=== PATIENT | female | born 1980 ===

== ENCOUNTER → 2017-09-13 | Outpatient (CLI) | payer SELFPAY ==
--- NOTE | 2017-09-13 15:04 | Diagnostic Imaging Report ---
INDICATION: Right lower quadrant pain and irregular menses. PROCEDURE: US Non-ob pelvis comp/trans. TECHNIQUE: Multiple Real-time grayscale images were obtained of the pelvis in various projections endovaginally. Transabdominal imaging was also performed. FINDINGS: The uterus measures 11.1 x 7.0 x 5.8 cm. No myometrial mass is identified. The left ovary was not visualized due to overlying bowel gas and body habitus. The right ovary measures 3.9 x 4.5 x 4.1 cm. The right ovary does contain a 3.3 cm cyst. No other adnexal mass is identified. No free fluid is seen. IMPRESSION: 3.3 cm right ovarian cyst. No other significant abnormality is seen. A followup ultrasound could be performed to confirm resolution. Dictated by: Dictated on workstation # [id number]
== END ==
LOC: RAD 12:15
PROVIDERS: ATTEND Physician Assistant
DX: N83.201 Unspecified ovarian cyst, right side (principal); N92.0 Excessive and frequent menstruation with regular cycle
CPT/HCPCS: 76830; 76856

== ENCOUNTER 2022-01-15 16:49 | Emergency (ER) | payer SELFPAY ==
[~2022-01-15] VITALS: Ht 149.8 cm; Wt 113.3 kg
--- NOTE | 2022-01-15 17:26 | ED Abdominal Pain ---
General Chief Complaint: Abdominal/GI Problems Stated Complaint: ABD PAIN Nursing Triage Note: PT AMB TO [facility] 3 WITH FRIEND. PT STATED THAT SHE HAS HAD UPPER LEFT ABD PAIN FOR 2 WEEKS. PT WAS SEEN LAST SATURDAY AT [facility] IN [place] AND WAS TOLD THAT SHE SHOULD SEE HER PRIMARY CARE PROVIDER FOR POSSIBLE H PYLORI. PT SAW HER PRIMARY CARE PROVIDER TODAY AND WAS REFERED TO ER. Source of Information: Patient Exam Limitations: No Limitations History of Present Illness Date Seen by Provider: Jan 15, 2022 Time Seen by Provider: 17:25 Initial Comments to ER with left upper abdominal pain for 2 weeks pain is constant and slightly improved with eating. It is worse when she does not eat. She has had nausea once. Couple of days ago she had diarrhea. Timing/Duration: Other (2 weeks) Severity/Quality: Moderate Location: Epigastric Radiation: No Radiation Activities at Onset: None Associated Symptoms: Denies Symptoms Allergies and Home Medications Allergies Coded Allergies: No Known Drug Allergies (Unverified , 01/15/22) Patient Home Medication List Home Medication List Reviewed: Yes Pantoprazole Sodium (Protonix) 40 Mg Tablet.dr, 40 MG PO DAILY Prescribed by: MORELIA QUEEN on 01/15/221901 Sucralfate (Carafate) 1 Gram Tablet, 1 GM PO ACHS Prescribed by: MORELIA QUEEN on 01/15/221901 Review of Systems Review of Systems Constitutional: see HPI EENTM: No Symptoms Reported Respiratory: No Symptoms Reported Cardiovascular: No Symptoms Reported Gastrointestinal: See HPI, Abdominal Pain Genitourinary: No Symptoms Reported Musculoskeletal: no symptoms reported Skin: no symptoms reported Psychiatric/Neurological: No Symptoms Reported Endocrine: No Symptoms Reported Hematologic/Lymphatic: No Symptoms Reported Past Alzicdm-Antcev-Hhludf Hx Patient Social History Tobacco Use?: No Substance use?: No Alcohol Use?: No Pt feels they are or have been: Unable to obtain Immunizations Up To Date Influenza Vaccine Up-to-Date: No; Not Current Physical Exam Vital Signs Vital Signs - First Documented 01/15/22 16:55 Pulse 102 Resp 16 B/P (MAP) 134/79 (97) Pulse Ox 97 O2 Delivery Room Air Capillary Refill : Less Than 3 Seconds Height/Weight/BMI Height: '" Weight: lbs. oz. kg; 50.00 BMI Method: General Appearance: WD/WN, no apparent distress, obese, other (Tearful) Neck: non-tender, full range of motion Respiratory: no respiratory distress, no accessory muscle use Cardiovascular: regular rate, rhythm, no murmur Gastrointestinal: normal bowel sounds, soft, tenderness (Epigastric and left upper) Extremities: normal range of motion, non-tender Neurologic/Psychiatric: alert, normal mood/affect, oriented x 3 Skin: normal color, warm/dry Progress/Results/Core Measures Results/Orders Lab Results Laboratory Tests Test 01/15/22 17:40 Range/Units White Blood Count 6.6 4.3-11.0 10^3/uL Red Blood Count 4.84 3.80-5.11 10^6/uL Hemoglobin 13.9 11.5-16.0 g/dL Hematocrit 41 35-52 % Mean Corpuscular Volume 86 80-99 fL Mean Corpuscular Hemoglobin 29 25-34 pg Mean Corpuscular Hemoglobin Concent 34 32-36 g/dL Red Cell Distribution Width 14.0 10.0-14.5 % Platelet Count 309 130-400 10^3/uL Mean Platelet Volume 8.4 L 9.0-12.2 fL Immature Granulocyte % (Auto) 0 % Neutrophils (%) (Auto) 56 42-75 % Lymphocytes (%) (Auto) 36 12-44 % Monocytes (%) (Auto) 7 0-12 % Eosinophils (%) (Auto) 1 0-10 % Basophils (%) (Auto) 0 0-10 % Neutrophils # (Auto) 3.7 1.8-7.8 10^3/uL Lymphocytes # (Auto) 2.4 1.0-4.0 10^3/uL Monocytes # (Auto) 0.5 0.0-1.0 10^3/uL Eosinophils # (Auto) 0.0 0.0-0.3 10^3/uL Basophils # (Auto) 0.0 0.0-0.1 10^3/uL Immature Granulocyte # (Auto) 0.0 0.0-0.1 10^3/uL Sodium Level 137 135-145 MMOL/L Potassium Level 3.8 3.6-5.0 MMOL/L Chloride Level 101 98-107 MMOL/L Carbon Dioxide Level 25 21-32 MMOL/L Anion Gap 11 5-14 MMOL/L Blood Urea Nitrogen 6 L 7-18 MG/DL Creatinine 0.69 0.60-1.30 MG/DL Estimat Glomerular Filtration Rate 111 BUN/Creatinine Ratio 9 Glucose Level 99 70-105 MG/DL Calcium Level 9.8 8.5-10.1 MG/DL Corrected Calcium 9.6 8.5-10.1 MG/DL Total Bilirubin 0.5 0.1-1.0 MG/DL Aspartate Amino Transf (AST/SGOT) 36 H 5-34 U/L Alanine Aminotransferase (ALT/SGPT) 42 0-55 U/L Alkaline Phosphatase 86 40-136 U/L Total Protein 7.9 6.4-8.2 GM/DL Albumin 4.3 3.2-4.5 GM/DL Lipase 29 8-78 U/L Serum Test, Qualitative NEGATIVE NEGATIVE My Orders Orders - MORELIA QUEEN APRN Hcg,Qualitative Serum (01/15/22 17:22) Cbc With Automated Diff (01/15/22 17:22) Comprehensive Metabolic Panel (01/15/22 17:22) Lipase (01/15/22 17:22) Ed Iv/Invasive Line Start (01/15/22 17:22) Ct Abdomen/Pelvis W (01/15/22 17:22) Fentanyl Inj (Sublimaze Injection) (01/15/22 17:30) Antacid Suspension (Mylanta Suspension (01/15/22 17:30) Lidocaine 2% Viscous 15 Ml (Xylocaine Vi (01/15/22 17:30) Ondansetron Injection (Zofran Injectio (01/15/22 17:30) Iohexol Injection (Omnipaque 350 Mg/Ml 1 (01/15/22 18:30) Ns (Ivpb) (Sodium Chloride 0.9% Ivpb Bag (01/15/22 18:30) Medications Given in ED Current Medications Medications Dose Ordered Sig/Jalil Route Start Time Stop Time Status Last Admin Dose Admin Al Hydrox/Mg Hydrox/Simethicone 30 ml ONCE ONCE PO 01/15/22 17:30 01/15/22 17:31 DC 01/15/22 17:56 30 ML Fentanyl Citrate 50 mcg ONCE ONCE IVP 01/15/22 17:30 01/15/22 17:31 DC 01/15/22 17:50 50 MCG Iohexol 100 ml ONCE ONCE IV 01/15/22 18:30 01/15/22 18:31 DC 01/15/22 18:36 100 ML Lidocaine HCl 10 ml ONCE ONCE PO 01/15/22 17:30 01/15/22 17:31 DC 01/15/22 17:56 10 ML Ondansetron HCl 8 mg ONCE ONCE IVP 01/15/22 17:30 01/15/22 17:31 DC 01/15/22 17:51 8 MG Sodium Chloride 100 ml ONCE ONCE IV 01/15/22 18:30 01/15/22 18:31 DC 01/15/22 18:36 80 ML Vital Signs/I&O 01/15/22 16:55 Pulse 102 Resp 16 B/P (MAP) 134/79 (97) Pulse Ox 97 O2 Delivery Room Air Blood Pressure Mean: 97 Departure Communication (Admissions) 1906-pain is almost completely gone, much better she is very appreciative. I will put her on Protonix and Carafate and have her follow-up with surgery for EGD if this fails to improve her symptoms. NAME: QAMAR ,COSME Raymundo [facility] REC#: [id number] PT STATUS: REG ER : 1980 PHYSICIAN: MORELIA QUEEN [employer] PROCESSOR ADMIT DATE: 01/15/22/ER Draft Date of Exam:01/15/22 CT ABDOMEN/PELVIS W PROCEDURE: CT abdomen and pelvis with contrast. TECHNIQUE: Multiple contiguous axial images were obtained through the abdomen and pelvis after administration of intravenous contrast. Auto Exposure Controls were utilized during the CT exam to meet ALARA standards for radiation dose reduction. All CT scans use one or more of the following dose optimizing techniques: automated exposure control, MA and/or KvP adjustment based on patient size and exam type or iterative reconstruction. INDICATION: Left abdominal pain for 2 weeks No focal hepatic, gallbladder, pancreatic, adrenal gland or splenic abnormality is identified. Kidneys are unremarkable without hydronephrosis or mass. There is no free fluid within the abdomen or pelvis. The appendix has a normal appearance. Unopacified bladder is distended but otherwise unremarkable. Uterine body is deviated toward the right with prominence of cyst in the right ovary. Otherwise, there is no evidence of organized fluid collection or focal inflammation. IMPRESSION: No acute abnormality is identified within the abdomen or pelvis. Incidental note is made of partially visualized mild atelectasis or scarring in the lingula. Dictated on workstation # [id number] Dict: 01/15/22 1843 Trans: 01/15/22 1852 AVA [id number] Interpreted by: KEON ROSE MD Electronically signed by: Impression Primary Impression: Gastritis Disposition: 01 HOME, SELF-CARE Condition: Stable Departure-Patient Inst. Decision time for Depature: 19:01 Referrals: [facility] [place] (PCP/Family) Primary Care Physician Patient Instructions: Gastritis ED Add. Discharge Instructions: 1. Acid rn clinical as directed. Follow-up with one of the surgeons listed to make an appointment to be seen as they may wish to to do endoscopy. All discharge instructions reviewed with patient and/or family. Voiced understanding. Scripts Sucralfate (Carafate) 1 Gram Tablet 1 GM PO ACHS, #40 TAB Prov: MORELIA QUEEN APRN 01/15/22 Pantoprazole Sodium (Protonix) 40 Mg Tablet.dr 40 MG PO DAILY, #30 TAB Prov: MORELIA QUEEN APRN 01/15/22 MORELIA QUEEN APRN Jan 15, 2022 17:26
[2022-01-15] MEDS ORDERED: ONDANSETRON 4 MG/2 ML (SDV) Z0FRAN IVP ONE (17:30)
[2022-01-15] MEDS ORDERED: ANTACID SUSP 30 ML UDC (MYLANTA) PO ONE (17:30)
[2022-01-15] MEDS ORDERED: fentaNYL INJ 100 MCG/2 ML AMP IVP ONE (17:30)
[2022-01-15] MEDS ORDERED: LIDOCAINE 2% VISCOUS 15 ML UDC PO ONE (17:30)
[2022-01-15 17:54] LABS: BASOPHILS % (AUTO) 0 % (0-10); EOSINOPHILS % (AUTO) 1 % (0-10); HEMATOCRIT 41 % (35-52); HEMOGLOBIN 13.9 g/dL (11.5-16.0); LYMPHOCYTES # (AUTO) 2.4 10^3/uL (1.0-4.0); LYMPHOCYTES % (AUTO) 36 % (12-44); MEAN CORPUSCULAR HEMOGLOBIN 29 pg (25-34); MEAN CORPUSCULAR HGB CONC 34 g/dL (32-36); MEAN CORPUSCULAR VOLUME 86 fL (80-99); MEAN PLATELET VOLUME 8.4 fL (9.0-12.2); MONOCYTES # (AUTO) 0.5 10^3/uL (0.0-1.0); MONOCYTES % (AUTO) 7 % (0-12); NEUTROPHILS # (AUTO) 3.7 10^3/uL (1.8-7.8); NEUTROPHILS % (AUTO) 56 % (42-75); PLATELET COUNT 309 10^3/uL (130-400); WHITE BLOOD COUNT 6.6 10^3/uL (4.3-11.0)
[2022-01-15 18:10] LABS: ALBUMIN 4.3 GM/DL (3.2-4.5); POTASSIUM 3.8 MMOL/L (3.6-5.0)
[2022-01-15 18:11] LABS: CALCIUM 9.8 MG/DL (8.5-10.1)
[2022-01-15 18:12] LABS: TOTAL PROTEIN 7.9 GM/DL (6.4-8.2)
[2022-01-15 18:14] LABS: BILIRUBIN,TOTAL 0.5 MG/DL (0.1-1.0)
[2022-01-15 18:16] LABS: CREATININE SERUM 0.69 MG/DL (0.60-1.30)
[2022-01-15] MEDS ORDERED: NS 100 ML (IVPB) BAG IV ONE (18:30)
[2022-01-15] MEDS ORDERED: IOHEXOL 350 MG/ML 100 ML (OMNIPAQUE 350) VIAL IV ONE (18:30)
--- NOTE | 2022-01-15 18:53 | Diagnostic Imaging Report ---
PROCEDURE: CT abdomen and pelvis with contrast. TECHNIQUE: Multiple contiguous axial images were obtained through the abdomen and pelvis after administration of intravenous contrast. Auto Exposure Controls were utilized during the CT exam to meet ALARA standards for radiation dose reduction. All CT scans use one or more of the following dose optimizing techniques: automated exposure control, MA and/or KvP adjustment based on patient size and exam type or iterative reconstruction. INDICATION: Left abdominal pain for 2 weeks No focal hepatic, gallbladder, pancreatic, adrenal gland or splenic abnormality is identified. Kidneys are unremarkable without hydronephrosis or mass. There is no free fluid within the abdomen or pelvis. The appendix has a normal appearance. Unopacified bladder is distended but otherwise unremarkable. Uterine body is deviated toward the right with prominence of cyst in the right ovary. Otherwise, there is no evidence of organized fluid collection or focal inflammation. IMPRESSION: No acute abnormality is identified within the abdomen or pelvis. Incidental note is made of partially visualized mild atelectasis or scarring in the lingula. Dictated by: Dictated on workstation # [id number]
[2022-01-15] MEDS ORDERED: SUCR1TAB36 PO (19:02)
[2022-01-15] MEDS ORDERED: PANT40TA2 PO (19:02)
[2022-01-15 19:10] VITALS: BP 127/77
== END 2022-01-15 19:17 | disposition home or self-care (01) ==
LOC: EDUNIT# 16:49 → ER 16:51
DX: K29.70 Gastritis, unspecified, without bleeding (principal)
CPT/HCPCS: 36415; 74177; 80053; 83690; 84703; 85025